=== PATIENT | female | born 1955 | race African-American/Black ===

== ENCOUNTER 2018-11-12 05:53 | Emergency (ER) | payer OTHER ==
[~2018-11-12] VITALS: Ht 175.3 cm; Wt 82.0 kg
[~2018-11-12 05:53] MED LIST: ASPI-1159 PO; Metoprolol Tartrate PO
[2018-11-12] MEDS ORDERED: KETOROLAC 60MG/2ML VIAL IM ONE (08:45)
[2018-11-12 11:19] VITALS: BP 151/98
== END 2018-11-12 11:30 | disposition home or self-care (01) ==
LOC: ER 05:53
DX: M54.31 Sciatica, right side (principal); F17.200 Nicotine dependence, unspecified, uncomplicated; Z79.82 Long term (current) use of aspirin; Z98.890 Other specified postprocedural states; W01.0XXA Fall on same level from slipping, tripping and stumbling without subsequent striking against object, initial encounter; Y93.89 Activity, other specified; Y92.89 Other specified places as the place of occurrence of the external cause; Y99.8 Other external cause status
CPT/HCPCS: 73502; 73552; 96372; 99283; J1885

== ENCOUNTER 2020-07-20 17:13 | Emergency (ER) | payer OTHER ==
[~2020-07-20] VITALS: Ht 172.7 cm; Wt 78.0 kg
[~2020-07-20 17:13] MED LIST changes: -ASPI-1159 PO; +ASPI-1497 PO
[2020-07-20 17:16] VITALS: BP 168/98
== END 2020-07-20 18:21 | disposition home or self-care (01) ==
LOC: ER 17:13
DX: S09.90XA Unspecified injury of head, initial encounter (principal); Y04.0XXA Assault by unarmed brawl or fight, initial encounter; Y93.89 Activity, other specified; Y92.89 Other specified places as the place of occurrence of the external cause; Y99.8 Other external cause status
CPT/HCPCS: 99283